=== PATIENT | female | born 1945 | race Hispanic/Latino ===

== ENCOUNTER 2018-11-06 22:18 | Emergency (ER) | payer MEDICARE ==
[2018-11-06] MEDS ORDERED: ZOFRAN IV ONE (22:34)
[2018-11-06] MEDS ORDERED: NORMODYNE IV ONE (22:34)
[2018-11-06] MEDS ORDERED: TYLENOL PO ONE (22:34)
--- NOTE | 2018-11-06 22:38 | Emergency Department Report ---
HPI - General Time Seen by Provider: 11/06/18 22:21 - HPI HPI: 73-year-old female presents to the emergency department by EMS from home with complaint of chills, nausea and vomiting. The patient says that she came home from playing [employer] and suddenly she felt very cold. She turned up the thermostat and used a blanket but still was having chills. After this the sophie ent began having some nausea and vomiting. She did not receive anything in route with EMS, nor taken anything prior to arrival. She has a past medical history of hypertension, elevated cholesterol, coronary artery disease with previous ND, and a surgical history of hysterectomy, cholecystectomy and remote heart valve repair. The patient's primary care physician is a Dr. Young. No recent travel or sick contacts at home. She denies any chest pain, abdominal pain, back pain, dysuria. The patient was found to have a fever of 102F when EMS arrived. Patient also presents with very elevated blood pressure but says that she has been taking her blood pressure medications. ED Past Medical Hx - Past Medical History Hx Hypertension: Yes Hx CVA: Yes Hx Heart Attack/AMI: Yes (X2) Hx Congestive Heart Failure: Yes Hx Renal Disease: Yes (acute kidney injury, creatinine 1.5) Additional medical history: HIGH CHOLESTEROL - Surgical History Hx Coronary Stent: Yes Hx Open Heart Surgery: Yes (TRIPLE BYPASS) Additional Surgical History: HYSTERECTOMY - Social History Smoking Status: Former Smoker - Medications Home Medications: Home Medications Medication Instructions Recorded Confirmed Last Taken Type Clopidogrel [Plavix] 75 mg PO QDAY 05/03/16 05/03/16 Unknown History Lisinopril [Zestril] 20 mg PO BID 05/03/16 05/03/16 Unknown History Metoprolol Tartrate [Lopressor] 50 mg PO BID 05/03/16 05/03/16 Unknown History RX: AtorvaSTATin [Lipitor] 40 mg PO QHS 05/03/16 05/03/16 Unknown History RX: Ampicillin [Polycillin] 500 mg PO Q6H #28 capsule 05/12/16 Unknown Rx metroNIDAZOLE [Flagyl] 500 mg PO Q8HR #21 tablet 05/12/16 Unknown Rx oxyCODONE /ACETAMINOPHEN [Percocet 1 tab PO Q6HR PRN #24 tablet 05/12/16 Unknown Rx 5/325] Sulfamethoxazole/Trimethoprim 1 each PO BID #14 tablet 11/07/18 Unknown Rx [Bactrim DS TAB] ED Review of Systems ROS: Stated complaint: FEVER Other details as noted in HPI Comment: All other systems reviewed and negative Constitutional: chills, fever Eyes: denies: eye pain, vision change ENT: denies: ear pain, throat pain Respiratory: denies: cough, shortness of breath Cardiovascular: denies: chest pain, palpitations Gastrointestinal: nausea, vomiting Genitourinary: denies: dysuria, discharge Musculoskeletal: denies: back pain, arthralgia Skin: denies: rash, lesions Neurological: denies: headache, weakness Physical Exam - Physical Exam Physical Exam: GENERAL: The patient is well-developed well-nourished. HEENT: Normocephalic. Atraumatic. Patient has moist mucous membranes. EYES: Extraocular motions are intact. Pupils are equal and reactive to light bilaterally. NECK: Supple. Trachea is midline. CHEST/LUNGS: Clear to auscultation. There is no respiratory distress noted. HEART/CARDIOVASCULAR: Regular. There is mild tachycardia. There is no obvious murmur. ABDOMEN: Abdomen is soft, nontender. Patient has normal bowel sounds. There is no abdominal distention. SKIN: Skin is warm and dry. NEURO: The patient is awake, alert, and oriented. The patient is cooperative. The patient has no focal neurologic deficits. The patient has normal speech. MUSCULOSKELETAL: There is no tenderness or deformity. There is no limitation range of motion. There is no evidence of acute injury. ED Medical Decision Making - Lab Data Result diagrams: 11/06/18 23:05 11/06/18 23:04 - Radiology Data Radiology results: image reviewed interpreted by me: Chest x-ray does not show any pneumothorax, pleural effusion, pneumonia or obvious focal consolidation. Abdominal x-ray shows nonspecific nonobstructive bowel gas. - Medical Decision Making Patient presents to the emergency department after she again having chills, nausea and vomiting. She presents with a temperature of 102F. The rest of vital signs are stable. A chest x-ray was done that does not show any pneumo chacorta, pleural effusions, pneumothorax, focal consolidation, or any other acute process. Abdominal x-ray also shows only nonspecific nonobstructive bowel gas. The patient's labs were mostly unremarkable including no leukocytosis. There were no electrolyte abnormalities or significant glucose abnormalities. The patient does have some mild renal insufficiency but in comparing her labs to previous visits, this appears to be unchanged. Patient's urinalysis however did show a significant urinary tract infection. Patient was given some IV antibiotics, Tylenol, IV fluid resuscitation. She was given some Zofran for her complaint of nausea. She was reevaluated multiple times over multiple hours and says that she is feeling greatly improved and asking for discharge home. She will be discharged home to follow up with primary care and has been given antibiotics. She will return to the ER with any worsening of her symptoms or with any acute distress. - Differential Diagnosis UTI, sepsis, pneumonia, gastroenteritis, food poisoning Critical Care Time: No Critical care attestation.: If time is entered above; I have spent that time in minutes in the direct care of this critically ill patient, excluding procedure time. ED Disposition Clinical Impression: CKD (chronic kidney disease) Qualifiers: Chronic kidney disease stage: unspecified stage Qualified Code(s): N18.9 - Chronic kidney disease, unspecified Fever Qualifiers: Fever type: unspecified Qualified Code(s): R50.9 - Fever, unspecified UTI (urinary tract infection) Qualifiers: Urinary tract infection type: acute cystitis Hematuria presence: without hematuria Qualified Code(s): N30.00 - Acute cystitis without hematuria Disposition: TO HOME OR SELFCARE Is pt being admited?: No Condition: Stable Instructions: Urinary Tract Infection in Women (ED), Chronic Kidney Disease (ED), Fever in Adults (ED) Additional Instructions: Please follow-up with your primary care physician in the next few days. Return to the emergency Department with any worsening of your symptoms or any acute distress. Take your antibiotics as prescribed. You can take Tylenol every 4 hours, using weight-based dosing on the back of the bottle, as needed for any fever or discomfort. Prescriptions: Sulfamethoxazole/Trimethoprim [Bactrim DS TAB] 1 each PO BID #14 tablet Referrals: Primary Care Physician, Your [Other] - 2-3 Days Time of Disposition: 01:58
--- NOTE | 2018-11-06 23:13 | XRay Report ---
FINAL REPORT PROCEDURE: XR ABD SERIES W CXR 1V TECHNIQUE: Abdominal series complete, including supine and upright AP views of the abdomen and front al chest. HISTORY: Abdominal Pain COMPARISON: No prior studies are available for comparison. FINDINGS: Heart: Heart size is pronounced. Mediastinum/Vessels: Multiple sternal wires. Lungs/Pleural space: Normal. Bowel gas pattern: Nonobstructive. Masses or calcifications: There is been previous surgery in the lower pelvis. The rectum is noted.. Bony structures: No acute osseous abnormality. Other: No free intraperitoneal air. IMPRESSION: Mild cardiomegaly. The bowel gas pattern is nonobstructive. There is normal previous cholecystectomy and previous surgery in the lower pelvis..
[2018-11-06 23:23] LABS: Basophils % (Auto) 0.4 % (0.0-1.8); Eosinophils # (Auto) 0.1 K/mm3 (0.0-0.4); Eosinophils % (Auto) 1.1 % (0.0-4.3); Hematocrit 35.9 % (30.3-42.9); Hemoglobin 12.2 gm/dl (10.1-14.3); Lymphocytes # (Auto) 0.6 K/mm3 (1.2-5.4); Lymphocytes % (Auto) 6.6 % (13.4-35.0); Mean Corpuscular HGB Conc 34 % (30-34); Mean Corpuscular Volume 97 fl (79-97); Monocytes # (Auto) 0.3 K/mm3 (0.0-0.8); Platelet Count 187 K/mm3 (140-440); Red Blood Count 3.71 M/mm3 (3.65-5.03); Red Cell Distribution Width 13.7 % (13.2-15.2)
[2018-11-06 23:41] LABS: Albumin 4.6 g/dL (3.9-5); Bilirubin,Direct 0.2 mg/dL (0-0.2); Calcium 9.3 mg/dL (8.4-10.2)
[2018-11-07 00:43] LABS: Bilirubin,Urine NEG (Negative); Blood,Urine MOD (Negative); Color,Urine Yellow (Yellow); Mucus,Urine FEW /HPF; Urobilinogen,Urine < 2.0 mg/dL (<2.0); WBC,Urine > 182.0 /HPF (0.0-6.0)
[2018-11-07] MEDS ORDERED: ROCEPHIN/NS 1 GM/50 ML 1 GM/50 ML BAG IV ONE (00:57)
[2018-11-07 14:49] VITALS: BP 129/60
== END 2018-11-07 02:46 | disposition home or self-care (01) ==
LOC: ED 22:18
DX: N18.9 Chronic kidney disease, unspecified (principal); N30.00 Acute cystitis without hematuria; R50.9 Fever, unspecified; I13.0 Hypertensive heart and chronic kidney disease with heart failure and stage 1 through stage 4 chronic kidney disease, or unspecified chronic kidney disease; I50.9 Heart failure, unspecified; I25.2 Old myocardial infarction; E78.00 Pure hypercholesterolemia, unspecified; Z86.73 Personal history of transient ischemic attack (TIA), and cerebral infarction without residual deficits; Z95.5 Presence of coronary angioplasty implant and graft; Z90.710 Acquired absence of both cervix and uterus; Z87.891 Personal history of nicotine dependence; Z79.899 Other long term (current) drug therapy
CPT/HCPCS: 36415; 74022; 80048; 80076; 81001; 82140; 83690; 85025; 96365; 96375; 99285; J0696; J2405

== ENCOUNTER 2019-11-10 18:33 | Emergency (ER) | payer MEDICARE ==
--- NOTE | 2019-11-10 18:40 | Emergency Department Report ---
- General Stated complaint: CVA Time Seen by Provider: 11/10/19 18:33 Source: patient, family Mode of arrival: Stretcher Limitations: No Limitations - History of Present Illness Initial comments: This 74-year-old female that presents to the emergency room with complaints of left-sided weakness. Patient's last known well time 1750 today. Patient states that she had a stroke left her with right leg weakness. Patient states she has a history of MO, 2 stents, triple bypass, hypertension, hyperlipidemia. Patient states she is currently on Plavix but is not on anticoagulants. The patient denies chest pain. Patient denies shortness of breath. Patient denies head trauma. Patient denies headache. Patient states she is compliant with all of her medications. MD Complaint: focal weakness -: Sudden Location: LUE, L hand, LLE Severity: severe Quality: numbness Consistency: constant Improves with: none Worsens with: none Associated Symptoms: denies other symptoms. denies: chest pain, confusion, dark stools, diaphoresis, dysuria, easy bruising, fever/chills, headaches, loss of appetite, nausea/vomiting, myalgias, rash, shortness of breath, syncope - Related Data Home Medications Medication Instructions Recorded Confirmed Last Taken AtorvaSTATin [Lipitor] 40 mg PO QHS 05/03/16 05/03/16 Unknown Clopidogrel [Plavix] 75 mg PO QDAY 05/03/16 05/03/16 Unknown Metoprolol Tartrate [Lopressor] 50 mg PO BID 05/03/16 05/03/16 Unknown lisinopriL [Zestril] 20 mg PO BID 05/03/16 05/03/16 Unknown Previous Rx's Medication Instructions Recorded Last Taken Type Ampicillin 500 mg PO Q6H #28 capsule 05/12/16 Unknown Rx metroNIDAZOLE [Flagyl] 500 mg PO Q8HR #21 tablet 05/12/16 Unknown Rx oxyCODONE /ACETAMINOPHEN [Percocet 1 tab PO Q6HR PRN #24 tablet 05/12/16 Unknown Rx 5/325] Sulfamethoxazole/Trimethoprim 1 each PO BID #14 tablet 11/07/18 Unknown Rx [Bactrim DS TAB] Allergies Allergy/AdvReac Type Severity Reaction Status Date / Time No Known Allergies Allergy Verified 02/24/15 09:27 ED Review of Systems ROS: Stated complaint: CVA Other details as noted in HPI Constitutional: weakness. denies: chills, fever Eyes: denies: eye pain, eye discharge, vision change ENT: denies: ear pain, throat pain Respiratory: denies: cough, shortness of breath, wheezing Cardiovascular: denies: chest pain, palpitations Endocrine: no symptoms reported Gastrointestinal: denies: abdominal pain, nausea, diarrhea Genitourinary: denies: urgency, dysuria, discharge Musculoskeletal: denies: back pain, joint swelling, arthralgia Skin: denies: rash, lesions Neurological: weakness. denies: headache, paresthesias Psychiatric: denies: anxiety, depression Hematological/Lymphatic: denies: easy bleeding, easy bruising ED Past Medical Hx - Past Medical History Previous Medical History?: Yes Hx Hypertension: Yes Hx CVA: Yes Hx Heart Attack/AMI: Yes (X2) Hx Congestive Heart Failure: Yes Hx Renal Disease: Yes (acute kidney injury, creatinine 1.5) Additional medical history: HIGH CHOLESTEROL - Surgical History Past Surgical History?: Yes Hx Coronary Stent: Yes Hx Open Heart Surgery: Yes (TRIPLE BYPASS) Additional Surgical History: HYSTERECTOMY - Family History Family history: no significant - Social History Smoking Status: Former Smoker Substance Use Type: None - Medications Home Medications: Home Medications Medication Instructions Recorded Confirmed Last Taken Type AtorvaSTATin [Lipitor] 40 mg PO QHS 05/03/16 05/03/16 Unknown History Clopidogrel [Plavix] 75 mg PO QDAY 05/03/16 05/03/16 Unknown History Metoprolol Tartrate [Lopressor] 50 mg PO BID 05/03/16 05/03/16 Unknown History lisinopriL [Zestril] 20 mg PO BID 05/03/16 05/03/16 Unknown History Ampicillin 500 mg PO Q6H #28 capsule 05/12/16 Unknown Rx metroNIDAZOLE [Flagyl] 500 mg PO Q8HR #21 tablet 05/12/16 Unknown Rx oxyCODONE /ACETAMINOPHEN [Percocet 1 tab PO Q6HR PRN #24 tablet 05/12/16 Unknown Rx 5/325] Sulfamethoxazole/Trimethoprim 1 each PO BID #14 tablet 11/07/18 Unknown Rx [Bactrim DS TAB] ED Physical Exam - General Limitations: No Limitations General appearance: alert, in no apparent distress - Head Head exam: Present: atraumatic, normocephalic - Eye Eye exam: Present: normal appearance - ENT ENT exam: Present: mucous membranes moist - Neck Neck exam: Present: normal inspection - Respiratory Respiratory exam: Present: normal lung sounds bilaterally. Absent: respiratory distress, wheezes, rales - Cardiovascular Cardiovascular Exam: Present: regular rate, normal rhythm. Absent: systolic murmur, diastolic murmur, rubs, gallop - GI/Abdominal GI/Abdominal exam: Present: soft, normal bowel sounds. Absent: distended, tende rness, guarding - Rectal Rectal exam: Present: deferred - Extremities Exam Extremities exam: Present: normal inspection - Back Exam Back exam: Present: normal inspection - Neurological Exam Neurological exam: Present: alert, oriented X3 - Psychiatric Psychiatric exam: Present: normal affect, normal mood - Skin Skin exam: Present: warm, dry, intact, normal color. Absent: rash - Assessment Assessment Interval: Baseline - Level of Consciousness 1a. Level of Consciousness: alert/keenly responsive - LOC Questions 1b. LOC Questions: answers 1 question correctly - LOC Command 1c. LOC Commands: performs tasks correctly - Best Gaze 2. Best Gaze: forced deviation - Visual 3. Visual: complete hemianopia - Facial Palsy 4. Facial Palsy: partial paralysis - Motor Arm 5a. Motor Arm Left: no movement 5b. Motor Arm Right: no drift - Motor Leg 6a. Motor Leg Left: no movement 6b. Motor Leg Right: drift - Limb Ataxia 7. Limb Ataxia: absent - Sensory 8. Sensory: severe/total sensory loss - Best Language 9. Best Language: mild/moderate aphasia - Dysarthria 10. Dysarthria: mild/moderate dysarthria - Extinction and Inattention 11. Extinction/Inattention: profound inattention - Scoring Total Score: 22 Stroke Severity: Severe Stroke ED Course Vital Signs 11/10/19 11/10/19 11/10/19 18:52 19:00 19:01 Temperature 98.8 F Pulse Rate 128 H 129 H 104 H Respiratory 31 H 29 H 16 Rate Blood Pressure Blood Pressure 197/146 [Right] O2 Sat by Pulse 96 100 Oximetry 11/10/19 11/10/19 11/10/19 19:15 19:16 19:52 Temperature Pulse Rate 125 H 125 H 128 H Respiratory 22 Rate Blood Pressure 196/123 196/123 197/146 Blood Pressure [Right] O2 Sat by Pulse 100 99 Oximetry 11/10/19 11/10/1920 20:00 20:16 20:17 Temperature Pulse Rate 129 H 128 H 127 H Respiratory 28 H 27 H Rate Blood Pressure 197/146 196/123 144/82 Blood Pressure [Right] O2 Sat by Pulse 96 93 Oximetry 11/10/19 11/10/19 11/10/19 20:50 21:00 21:16 Temperature Pulse Rate 97 H 93 H 127 H Respiratory 19 21 20 Rate Blood Pressure 148/88 129/68 148/88 Blood Pressure [Right] O2 Sat by Pulse 95 94 95 Oximetry 11/10/19 11/10/19 11/10/19 21:30 21:46 22:00 Temperature Pulse Rate 128 H 130 H 131 H Respiratory 12 20 22 Rate Blood Pressure 135/78 149/94 152/77 Blood Pressure [Right] O2 Sat by Pulse 97 97 95 Oximetry - Reevaluation(s) Reevaluation #1: Patient's blood pressure still high. Patient status post vital patient will be placed on nicardipine drip. 11/10/19 19:13 Reevaluation #2: Patient blood pressure slightly better. Patient on nicardipine drip. Patient is very agitated. Patient unable to get a CTA because nurses were unable to get IV access. A central line will be placed in the right groin. Patient will be given Geodon. 11/10/19 19:48 Reevaluation #3: Central line placed. Patient's blood pressure better. Patient received TPA. Patient going back to CT for a CT of head and neck. 11/10/19 20:22 Reevaluation #4: I discussed plan of care with family and patient. The patient and family agree with Plan of care. Patient will be transferred via ground EMS to [facility] stroke team. I discussed all results with family and patient. We are not able to fly the patient via helicopter due to bad weather. 11/10/19 21:40 - Consultations Consultation #1: Discussed case with neurologist. Neurologist wants to give TPA once the blood pressures come down. 11/10/19 19:13 Neurologist read the CTA and the CTA head shows an M1 occlusion and is aren't counseled to stroke team [facility]. 11/10/19 21:04 Consultation #2: [facility] stroke team consult 11/10/19 21:05 Discussed case with neurology, stroke team at [facility]. Unable to fly the patient via helicopter due to bad weather. 11/10/19 21:07 She has been accepted to be transferred to [facility] stroke by dr Seaman. 11/10/19 21:30 - Central Line Placement Right Femoral Consent Obtained: emergent situation Time Out Performed: Yes Patient Placed on Monitor/Pulse Ox: Yes MD Prep: mask, gown, gloves Central Line Prep: Povidone-Iodine 1%, Chlorhexidine scrub, sterile drapes applied Local Anesthesia Used: Lidocaine 1% Ultrasound Used for Placement: Yes Central Line Lumen Inserted: triple Bloods Obtained for Lab: No Central Line Position: good blood return, all ports aspirated, flus, sutured in place with 2-0 Dressing Applied: Tegaderm Patient Tolerated Procedure: well, no complications Complications: none ED Medical Decision Making - Lab Data Result diagrams: 11/10/19 18:42 11/10/19 18:42 - EKG Data -: EKG Interpreted by Me EKG shows normal: sinus rhythm, axis, intervals, QRS complexes, ST-T waves Rate: normal - Radiology Data Radiology results: report reviewed, image reviewed CT head/brain wo con INDICATION / CLINICAL INFORMATION: 74 years Female; neuro deficits <6hrs or sx present upon awakening. TECHNIQUE: Routine CT head without contrast. All CT scans at this location are performed using CT dose reduction for ALARA by means of automated exposure control. COMPARISON: None. FINDINGS: BRAIN / INTRACRANIAL CONTENTS: Hyperdense M1 segments seen in the right MCA territory, when compared with the remainder of the visualized intracranial arteries, worrisome for thrombus. There may be early, subtle changes in the wu matter of the right MCA territory, particularly in the inferior frontal gyral region and perhaps in the insular cortex. Old corpus striatal infarcts seen on the right. Lacunar infarcts seen in the left gangliocapsular region. Old, branch PICA infarcts seen bilaterally. Otherwise, no acute hemorrhage, mass effect, midline shift, hydrocephalus, or ac [place], large territorial infarct. Mild to moderate cerebral and cerebellar atrophy. There are extensive areas of decreased attenuation in the white matter of the cerebral hemispheres, as well as the gangliocapsular regions. These are nonspecific findings and may be related to microangiopathy (hypertension, diabetes, atherosclerosis), given the patient's age. It might be difficult to evaluate for small areas of ischemia without diffusion imaging by MRI. CRANIOCERVICAL JUNCTION: No significant abnormality. ORBITS: No significant abnormality of visualized orbits. SINUSES / MASTOIDS: Mucosal thickening seen in the ethmoids. ADDITIONAL FINDINGS: Atherosclerotic disease is seen in the anterior and posterior circulation. IMPRESSION: 1. Findings concerning for thrombus in early ischemic changes in the right MCA territory as described above. CT angio head INDICATION / CLINICAL INFORMATION: 74 years Female; stroke. TECHNIQUE: Thin cut axial images obtained through the head during IV bolus contrast administration. Sagittal, coronal, and 3 plane MIP reconstructions performed by the t echnologist. NASCET type criteria used evaluate stenoses. Automated exposure control utilized for ra diation reduction purposes. COMPARISON: CT head - 11/10/2019 at 6:36 PM FINDINGS: Since prior CT, ischemic changes in the right MCA territory are much better visualized. INTERNAL CAROTID ARTERIES: No significant narrowing appreciated. Mild atherosclerotic disease seen in the internal carotid arteries bilaterally. VERTEBROBASILAR SYSTEM: No significant narrowing appreciated. DISTAL BRANCHES: Distal branches of the anterior posterior cerebral arteries are fairly symmetric in appearance and number. As noted on recent CT, there is thrombus in the M1 segment on the right extending into the MCA trifurcation region. A small component of the thrombus projects into the proximal posterior communicating artery on the right, although the right posterior cerebral artery does not appear to be affected at this time. The distal right MCA vessels are much less well visualized, when compared with the left. ANEURYSM: None identified. ADDITIONAL FINDINGS: Remainder of the surrounding soft tissues are grossly normal. IMPRESSION: 1. Thrombus seen in the right MCA territory as described above. Findings correspond with findings on recent CT from earlier today. 2. Progression of ischemic changes in the right MCA territory noted. No definitive signs of hemorrhagic transformation at this time. CT angio neck INDICATION / CLINICAL INFORMATION: 74 years Female; stroke. TECHNIQUE: Thin cut axial images obtained through the head during IV bolus contrast administration. Sagittal, coronal, and 3 plane MIP reconstructions performed by the technologist. NASCET type criteria used evaluate stenoses. All CT scans at this location are performed using CT dose reduction for ALARA by means of automated exposure control. Motion artifact. COMPARISON: None available. FINDINGS: ARCH: Normal aortic arch branching suggested. Mild atherosclerotic disease seen in the arch and its proximal branches. There may be an area of significant narrowing in the innominate artery on the right, approximately 2 cm distal to its origin extending to the bifurcation into the right common and right subclavian arteries. Some of this finding could be related to motion artifact. CAROTID ARTERIES: The visualized common and internal carotid arteries are widely patent. Mild atherosclerotic disease seen in the carotid bifurcation regions. VERTEBRAL ARTERIES: Left dominant vertebral system seen. No significant stenosis appreciated. May be mild narrowing at the origin of the left vertebral artery. However, this finding may be related to motion artifact. ADDITIONAL FINDINGS: Median sternotomy wires noted. Disc space narrowing seen at C5-6 and C6-7. IMPRESSION: 1. There may be a hemodynamically significant stenosis in the mid to distal innominate artery, as described above, although motion artifact might be consideration. 2. Otherwise, no signs of hemodynamically significant narrowing appreciated. - Medical Decision Making Patient is a 74-year-old female that presents with left-sided weakness. pt had a history of a stroke leaving her with right leg weakness in the past. Code stroke initiated immediately upon arrival. Neurology consultation immediately upon arrival. Patient was brought in by EMS. Neurologist recommended TPA. The delay in giving TPA due to the patient's mother hypertension. Patient was placed on a nicardipine drip given through the left EJ. And once the blood pressure reached a more tolerable level, the patient was given TPA bolus and a TPA drip. Patient also had delay and obtaining a CTA due to the patient not having adequate IV access, patient had a left EJ was placed by EMS put based on this hospital protocol and EJ cannot be used for CTA.. Patient required a central line to be in place in her right femoral vein. A delay in obtaining a central line due to the patient being agitated. Patient was given Geodon and Ativan and patient calm down. Patient tolerated central venous line. Central venous line will was placed without difficulty. See procedure note. After central venous line was obtained, the patient was sent for a CTA. CTA results were received and neuro stroke team at [facility] was consulted. Patient transfer emergently to [facility] stroke for a endovascular procedure. CTA results shows a MCA occlusion. Labs were done in the ER as a part of the code stroke. Labs are significant for renal failure and elevated troponin. The patient had to receive IV dye because the benefit outweighed the risk since the patient emergently required CTA evaluation. - Differential Diagnosis cva. weakness. enceph Critical Care Time: Yes Critical care time in (mins) excluding proc time.: 80 Critical care attestation.: If time is entered above; I have spent that time in minutes in the direct care of this critically ill patient, excluding procedure time. Critical Care Time: 80 minutes ED Disposition Clinical Impression: Hypertension, malignant, Elevated troponin I level, Left-sided weakness, Agitation CVA (cerebral vascular accident) Qualifiers: CVA mechanism: occlusion Precerebral and cerebral artery: middle cerebral artery Laterality of affected vessel: right Qualified Code(s): I63.511 - Cerebral infarction due to unspecified occlusion or stenosis of right middle cerebral artery Renal failure Qualifiers: Renal failure chronicity: acute Acute renal failure type: unspecified Qualified Code(s): N17.9 - Acute kidney failure, unspecified HTN (hypertension) Qualifiers: Hypertension type: unspecified Qualified Code(s): I10 - Essential (primary) hypertension Disposition: DC/TX-70 ANOTHER TYPE HLTHCARE Is pt being admited?: No Does the pt Need Aspirin: No Condition: Critical Time of Disposition: 21:57
[2019-11-10 18:56] LABS: Basophils # (Auto) 0.1 K/mm3 (0.0-0.1); Basophils % (Auto) 1.2 % (0.0-1.8); Eosinophils # (Auto) 0.2 K/mm3 (0.0-0.4); Hematocrit 32.7 % (30.3-42.9); Hemoglobin 10.8 gm/dl (10.1-14.3); Lymphocytes # (Auto) 1.2 K/mm3 (1.2-5.4); Lymphocytes % (Auto) 25.1 % (13.4-35.0); Mean Corpuscular HGB Conc 33 % (30-34); Mean Corpuscular Volume 89 fl (79-97); Monocytes # (Auto) 0.5 K/mm3 (0.0-0.8); Monocytes % (Auto) 9.2 % (0.0-7.3); Platelet Count 215 K/mm3 (140-440); Red Blood Count 3.68 M/mm3 (3.65-5.03); Red Cell Distribution Width 16.3 % (13.2-15.2)
--- NOTE | 2019-11-10 19:05 | Cat Scan Report ---
CT head/brain wo con INDICATION / CLINICAL INFORMATION: 74 years Female; neuro deficits <6hrs or sx present upon awakening. TECHNIQUE: Routine CT head without contrast. All CT scans at this location are performed using CT dos e reduction for ALARA by means of automated exposure control. COMPARISON: None. FINDINGS: BRAIN / INTRACRANIAL CONTENTS: Hyperdense M1 segments seen in the right MCA territory, when compared with the remainder of the visualized intracranial arteries, worrisome for thrombus. There may be jose armando y, subtle changes in the wu matter of the right MCA territory, particularly in the inferior frontal gyral region and perhaps in the insular cortex. Old corpus striatal infarcts seen on the right. Lacunar infarcts seen in the left gangliocapsular reg ion. Old, branch PICA infarcts seen bilaterally. Otherwise, no acute hemorrhage, mass effect, midline shift, hydrocephalus, or acute, large territori al infarct. Mild to moderate cerebral and cerebellar atrophy. There are extensive areas of decreased attenuation in the white matter of the cerebral hemispheres, a s well as the gangliocapsular regions. These are nonspecific findings and may be related to microangi opathy (hypertension, diabetes, atherosclerosis), given the patient's age. It might be difficult to e valuate for small areas of ischemia without diffusion imaging by MRI. CRANIOCERVICAL JUNCTION: No significant abnormality. ORBITS: No significant abnormality of visualized orbits. SINUSES / MASTOIDS: Mucosal thickening seen in the ethmoids. ADDITIONAL FINDINGS: Atherosclerotic disease is seen in the anterior and posterior circulation. IMPRESSION: 1. Findings concerning for thrombus in early ischemic changes in the right MCA territory as described above. This exam was performed as part of a code stroke protocol. The exam was completed on 11/10/2019 5:49 PM . The exam was reviewed at 5:[address] Sotelo was notified at 5:58 PM. Signer Name: Jarod Gallo MD, III Signed: 11/10/2019 7:01 PM Workstation Name: [id number]
[2019-11-10 19:07] LABS: Calcium 9.2 mg/dL (8.4-10.2); INR 0.97 (0.87-1.13)
[2019-11-10 19:23] LABS: Chol/HDL Ratio 2.61 %
--- NOTE | 2019-11-10 19:38 | Emergency Department Report ---
ED Neuro Deficit HPI - General Chief Complaint: Weakness Stated Complaint: CVA Time Seen by Provider: 11/10/19 18:33 Source: patient, EMS Mode of arrival: Ambulatory Limitations: No Limitations - History of Present Illness Initial Comments: [facility] Date of Service: 11/10/2019 18:40:36 Impression: Right Hemispheric Infarct MCA Distribution Infarct Comments: Concern for R MCA occlusion based on CT head. Patient was uncooperative and unable to get BP readings or IV access for CTA. Central line was placed while getting BP down and tpa prepared. Tpa was eventually able to be given after sedation. Will follow up CTA. Metrics: Last Known Well: 11/10/2019 17:50:00 [facility] Notification Time: 11/10/2019 18:40:36 Arrival Time: 11/10/2019 18:33:00 Stamp Time: 11/10/2019 18:40:36 Time First Login Attempt: 11/10/2019 18:40:36 Video Start Time: 11/10/2019 18:40:36 Symptoms: left sided weakness NIHSS Start Assessment Time: 11/10/2019 18:49:30 tPA Verbal Order Time: 11/10/2019 19:00:32 Patient is a candidate for tPA. tPA CPOE Order Time: 11/10/2019 19:07:53 Needle Time: 11/10/2019 20:16:00 Weight Noted by Staff: 82.8 kg Video End Time: 11/10/2019 20:16:39 tPA Delay Notes: BP control, delay in getting nicardipine from the pharmacy, patient having difficulty staying still and BP monitor was not able to read. Manual had to be used. She was given Geodon as she was agitated and unable to stay still for IV access or to get blood pressure readings. Still uncooperative after Geodon so then ativan 2mg was given. CT head was reviewed and results were: R MCA hyperdensity Presentation suggestive of Large Vessel Occlusive Disease, Neurointerventional specialists to be consulted. Advanced imaging CTA head and neck obtained. ED Physician notified of diagnostic impression and management plan on 11/10/2019 19:08:14 Verbal Consent to tPA: I have explained to the Patient the nature of the patients condition, the use of tPA fibrinolytic agent, and the benefits to be reasonably expected compared with alternative approaches. I have discussed the likelihood of major risks or complications of this procedure including (if applicable) but not limited to loss of limb function, brain damage, paralysis, hemorrhage, infection, complications from transfusion of blood components, drug reactions, blood clots and loss of life. I have also indicated that with any procedure there is always the possibility of an unexpected complication. All questions were answered and Patient express understanding of the treatment plan and consent to the treatment. Our recommendations are outlined below. Recommendations: IV tPA recommended. tPA bolus given Without Complication. IV tPA Total Dose 74.6 mg IV tPA Bolus Dose 7.5 mg IV tPA Infusion Dose - 67.1 mg Routine post tPA monitoring including neuro checks and blood pressure control during/after treatment Monitor blood pressure Check blood pressure and NIHSS every 15 min for 2 h, then every 30 min for 6 h, and finally every hour for 16 h. Manage Blood Pressure per post tPA protocol. Admission to ICU CT brain 24 hours post tPA NPO until swallowing screen performed and passed No antiplatelet agents or anticoagulants (including heparin for DVT prophylaxis) in first 24 hours No Penaloza catheter, nasogastric tube, arterial catheter or central venous catheter for 24 hr, unless absolutely necessary Telemetry Bedside swallow evaluation HOB less than 30 degrees Euglycemia Avoid hyperthermia, PRN acetaminophen DVT prophylaxis Inpatient Neurology Consultation Stroke evaluation as per inpatient neurology recommendations Additional Recommendations: MRA Head Without Contrast Start Atorvastatin Lipid Panel Check Hgb A1c Dysphagia Screen DVT Prophylaxis Hyperglycemia Treatment as per Primary Team PT/ OT / Speech Therapy Consultation Neurology to Be Consulted for Inpatient Routine Consultation Echocardiogram, TTE Discussed with ED physician History of Present Illness: Patient is a 74 years old Female. Patient was brought by EMS for symptoms of left sided weakness 74 yo F with history of stroke who is presenting with left sided weakness. Patient states that her daughter thought she was having a stroke because she was having left sided weakness at 17:50. Per her daughter she had witnessed onset of left sided weakness. CT head was reviewed. Examination: BP(144/82), Blood Glucose(114) 1A: Level of Consciousness - Alert; keenly responsive + 0 1B: Ask Month and Age - 1 Question Right + 1 1C: Blink Eyes & Squeeze Hands - Performs Both Tasks + 0 2: Test Horizontal Extraocular Movements - Forced Gaze Palsy: Cannot Be Overcome + 2 3: Test Visual Ramirez - Complete Hemianopia + 2 4: Test Facial Palsy (Use Grimace if Obtunded) - Partial paralysis (lower face) + 2 5A: Test Left Arm Motor Drift - No Movement + 4 5B: Test Right Arm Motor Drift - No Drift for 10 Seconds + 0 6A: Test Left Leg Motor Drift - No Movement + 4 6B: Test Right Leg Motor Drift - Drift, but doesn't hit bed + 1 7: Test Limb Ataxia (FNF/Heel-Pro) - No Ataxia + 0 8: Test Sensation - Complete Loss: Cannot Sense Being Touched At All + 2 9: Test Language/Aphasia - Mild-Moderate Aphasia: Some Obvious Changes, Without Significant Limitation + 1 10: Test Dysarthria - Mild-Moderate Dysarthria: Slurring but can be understood + 1 11: Test Extinction/Inattention - Profound kateryna-inattention (ex: does not recognize own hand) + 2 NIHSS Score: 22 Patient was informed the Neurology Consult would happen via TeleHealth consult by way of interactive audio and video telecommunications and consented to receiving care in this manner. Due to the immediate potential for life-threatening deterioration due to underlying acute neurologic illness, I spent 35 minutes providing critical care. This time includes time for face to face visit via telemedicine, review of medical records, imaging studies and discussion of findings with providers, the patient and/or family. Dr Zandra Novak [facility] Case [id number] Severity: severe - Related Data Home Medications: Home Medications Medication Instructions Recorded Confirmed Last Taken AtorvaSTATin [Lipitor] 40 mg PO QHS 05/03/16 05/03/16 Unknown Clopidogrel [Plavix] 75 mg PO QDAY 05/03/16 05/03/16 Unknown Metoprolol Tartrate [Lopressor] 50 mg PO BID 05/03/16 05/03/16 Unknown lisinopriL [Zestril] 20 mg PO BID 05/03/16 05/03/16 Unknown Previous Rx's Medication Instructions Recorded Last Taken Type Ampicillin 500 mg PO Q6H #28 capsule 05/12/16 Unknown Rx metroNIDAZOLE [Flagyl] 500 mg PO Q8HR #21 tablet 05/12/16 Unknown Rx oxyCODONE /ACETAMINOPHEN [Percocet 1 tab PO Q6HR PRN #24 tablet 05/12/16 Unknown Rx 5/325] Sulfamethoxazole/Trimethoprim 1 each PO BID #14 tablet 11/07/18 Unknown Rx [Bactrim DS TAB] Allergies/Adverse Reactions: Allergies Allergy/AdvReac Type Severity Reaction Status Date / Time No Known Allergies Allergy Verified 02/24/15 09:27 ED Review of Systems ROS: Stated complaint: CVA Other details as noted in HPI Constitutional: weakness. denies: chills, fever Eyes: denies: eye pain, eye discharge, vision change ENT: denies: ear pain, throat pain Respiratory: denies: cough, shortness of breath, wheezing Cardiovascular: denies: chest pain, palpitations Endocrine: no symptoms reported Gastrointestinal: denies: abdominal pain, nausea, diarrhea Genitourinary: denies: urgency, dysuria, discharge Musculoskeletal: denies: back pain, joint swelling, arthralgia Skin: denies: rash, lesions Neurological: weakness. denies: headache, paresthesias Psychiatric: denies: anxiety, depression Hematological/Lymphatic: denies: easy bleeding, easy bruising ED Past Medical Hx - Past Medical History Previous Medical History?: Yes Hx Hypertension: Yes Hx CVA: Yes Hx Heart Attack/AMI: Yes (X2) Hx Congestive Heart Failure: Yes Hx Renal Disease: Yes (acute kidney injury, creatinine 1.5) Additional medical history: HIGH CHOLESTEROL - Surgical History Past Surgical History?: Yes Hx Coronary Stent: Yes Hx Open Heart Surgery: Yes (TRIPLE BYPASS) Additional Surgical History: HYSTERECTOMY - Social History Smoking Status: Former Smoker Substance Use Type: None - Medications Home Medications: Home Medications Medication Instructions Recorded Confirmed Last Taken Type AtorvaSTATin [Lipitor] 40 mg PO QHS 05/03/16 05/03/16 Unknown History Clopidogrel [Plavix] 75 mg PO QDAY 05/03/16 05/03/16 Unknown History Metoprolol Tartrate [Lopressor] 50 mg PO BID 05/03/16 05/03/16 Unknown History lisinopriL [Zestril] 20 mg PO BID 05/03/16 05/03/16 Unknown History Ampicillin 500 mg PO Q6H #28 capsule 05/12/16 Unknown Rx metroNIDAZOLE [Flagyl] 500 mg PO Q8HR #21 tablet 05/12/16 Unknown Rx oxyCODONE /ACETAMINOPHEN [Percocet 1 tab PO Q6HR PRN #24 tablet 05/12/16 Unknown Rx 5/325] Sulfamethoxazole/Trimethoprim 1 each PO BID #14 tablet 11/07/18 Unknown Rx [Bactrim DS TAB] ED Neuro Physical Exam - General Limitations: No Limitations Suspected Stroke: Yes - NIHSS Assessment Interval: Baseline 1a. Level of Consciousness: alert/keenly responsive 1b. LOC Questions: answers 1 question correctly 1c. LOC Commands: performs tasks correctly 2. Best Gaze: forced deviation 3. Visual: complete hemianopia 4. Facial Palsy: partial paralysis 5b. Motor Arm Right: no drift 5a. Motor Arm Left: no movement 6a. Motor Leg Left: no movement 6b. Motor Leg Right: drift 7. Limb Ataxia: absent 8. Sensory: severe/total sensory loss 9. Best Language: mild/moderate aphasia 10. Dysarthria: mild/moderate dysarthria 11. Extinction/Inattention: complete neglect Total Score: 22 Stroke Severity: Severe Stroke ED Course Vital Signs 11/10/19 19:01 Temperature 98.8 F Pulse Rate 104 H Respiratory 16 Rate Blood Pressure 197/146 [Right] O2 Sat by Pulse 100 Oximetry - Lab Data Result diagrams: 11/10/19 18:42 11/10/19 18:42 Lab Results 11/10/19 11/10/19 11/10/19 Range/Units 18:42 18:42 18:42 WBC 4.9 (4.5-11.0) K/mm3 RBC 3.68 (3.65-5.03) M/mm3 Hgb 10.8 (10.1-14.3) gm/dl Hct 32.7 (30.3-42.9) % MCV 89 (79-97) fl MCH 29 (28-32) pg MCHC 33 (30-34) % RDW 16.3 H (13.2-15.2) % Plt Count 215 (140-440) K/mm3 Lymph % (Auto) 25.1 (13.4-35.0) % [place] % (Auto) 9.2 H (0.0-7.3) % Eos % (Auto) 4.0 (0.0-4.3) % Baso % (Auto) 1.2 (0.0-1.8) % Lymph # 1.2 (1.2-5.4) K/mm3 [place] # 0.5 (0.0-0.8) K/mm3 Eos # 0.2 (0.0-0.4) K/mm3 Baso # 0.1 (0.0-0.1) K/mm3 Seg Neutrophils % 60.5 (40.0-70.0) % Seg Neutrophils # 3.0 (1.8-7.7) K/mm3 PT 13.0 (12.2-14.9) Sec. INR 0.97 (0.87-1.13) APTT 27.0 (24.2-36.6) Sec. Thrombin Time (15.1-19.6) Sec. Sodium 139 (137-145) mmol/L Potassium 4.4 (3.6-5.0) mmol/L Chloride 103.0 (98-107) mmol/L Carbon Dioxide 20 L (22-30) mmol/L Anion Gap 20 mmol/L BUN 17 (7-17) mg/dL Creatinine 1.6 H (0.7-1.2) mg/dL Estimated GFR 32 ml/min BUN/Creatinine Ratio 11 % Glucose 114 H (65-100) mg/dL Calcium 9.2 (8.4-10.2) mg/dL Troponin T 0.083 H (0.00-0.029) ng/mL Triglycerides 90 (2-149) mg/dL Cholesterol 183 (50-199) mg/dL LDL Cholesterol Direct 106 (50-130) mg/dL HDL Cholesterol 70 H (40-59) mg/dL Cholesterol/HDL Ratio 2.61 % // Range/Units 18:42 WBC (4.5-11.0) K/mm3 RBC (3.65-5.03) M/mm3 Hgb (10.1-14.3) gm/dl Hct (30.3-42.9) % MCV (79-97) fl MCH (28-32) pg MCHC (30-34) % RDW (13.2-15.2) % Plt Count (140-440) K/mm3 Lymph % (Auto) (13.4-35.0) % [place] % (Auto) (0.0-7.3) % Eos % (Auto) (0.0-4.3) % Baso % (Auto) (0.0-1.8) % Lymph # (1.2-5.4) K/mm3 [place] # (0.0-0.8) K/mm3 Eos # (0.0-0.4) K/mm3 Baso # (0.0-0.1) K/mm3 Seg Neutrophils % (40.0-70.0) % Seg Neutrophils # (1.8-7.7) K/mm3 PT (12.2-14.9) Sec. INR (0.87-1.13) APTT (24.2-36.6) Sec. Thrombin Time 15.4 (15.1-19.6) Sec. Sodium (137-145) mmol/L Potassium (3.6-5.0) mmol/L Chloride (98-107) mmol/L Carbon Dioxide (22-30) mmol/L Anion Gap mmol/L BUN (7-17) mg/dL Creatinine (0.7-1.2) mg/dL Estimated GFR ml/min BUN/Creatinine Ratio % Glucose (65-100) mg/dL Calcium (8.4-10.2) mg/dL Troponin T (0.00-0.029) ng/mL Triglycerides (2-149) mg/dL Cholesterol (50-199) mg/dL LDL Cholesterol Direct (50-130) mg/dL HDL Cholesterol (40-59) mg/dL Cholesterol/HDL Ratio % Critical care attestation.: If time is entered above; I have spent that time in minutes in the direct care of this critically ill patient, excluding procedure time. ED Disposition Clinical Impression: CVA (cerebral vascular accident), Hypertension, malignant Disposition: OP ADMIT IP TO THIS HOSP Is pt being admited?: Yes Condition: Stable Instructions: Hypertension (ED) Referrals: PRIMARY CARE, [Primary Care Provider] - 3-5 Days
[2019-11-10] MEDS: LORazepam 2 MG/ML VIAL IV ONE ×2 (19:45→20:00)
[2019-11-10] MEDS ORDERED: WATER FOR INJ Sterile (PF) 10 ML ONE (19:46)
[2019-11-10] MEDS ORDERED: GLUCAGON (HUMAN RECOMBINANT) 1 MG/ML INJ ONE (19:46)
[2019-11-10] MEDS ORDERED: ZIPRASIDONE MESYLATE 20 MG VIAL IM ONE (19:47)
[2019-11-10] MEDS: niCARdipine 50 MG in SODIUM CHLORIDE 0.9% 250ML 230 ML IV SCH (19:50)
[2019-11-10] MEDS: ZIPRASIDONE MESYLATE 20 MG VIAL IM ONE (19:55)
[2019-11-10] MEDS: LIDOCAINE (2%) 20 MG/1 ML VIAL 20 ML MDV INFILTRATI ONE (20:00)
[2019-11-10] MEDS ORDERED: LIDOCAINE (2%) 20 MG/1 ML VIAL 20 ML MDV INFILTRATI ONE (20:08)
[2019-11-10] MEDS: ALTEPLASE 100 MG INJ KIT IV ONE ×2 (20:16→20:17)
[2019-11-10] MEDS: SODIUM CHLORIDE 0.9% 50 ML IVPB IV ONE (21:16)
--- NOTE | 2019-11-10 21:36 | Cat Scan Report ---
CT angio head INDICATION / CLINICAL INFORMATION: 74 years Female; stroke. TECHNIQUE: Thin cut axial images obtained through the head during IV bolus contrast administration. S agittal, coronal, and 3 plane MIP reconstructions performed by the technologist. NASCET type criteria used evaluate stenoses. Automated exposure control utilized for radiation reduction purposes. COMPARISON: CT head - 11/10/2019 at 6:36 PM FINDINGS: Since prior CT, ischemic changes in the right MCA territory are much better visualized. INTERNAL CAROTID ARTERIES: No significant narrowing appreciated. Mild atherosclerotic disease seen in the internal carotid arteries bilaterally. VERTEBROBASILAR SYSTEM: No significant narrowing appreciated. DISTAL BRANCHES: Distal branches of the anterior posterior cerebral arteries are fairly symmetric in appearance and number. As noted on recent CT, there is thrombus in the M1 segment on the right extending into the MCA trifur cation region. A small component of the thrombus projects into the proximal posterior communicating a rtery on the right, although the right posterior cerebral artery does not appear to be affected at th is time. The distal right MCA vessels are much less well visualized, when compared with the left. ANEURYSM: None identified. ADDITIONAL FINDINGS: Remainder of the surrounding soft tissues are grossly normal. IMPRESSION: 1. Thrombus seen in the right MCA territory as described above. Findings correspond with findings on recent CT from earlier today. 2. Progression of ischemic changes in the right MCA territory noted. No definitive signs of hemorrhag ic transformation at this time. Signer Name: Jarod Gallo MD, III Signed: 11/10/2019 9:31 PM Workstation Name: [id number]
--- NOTE | 2019-11-10 21:46 | Cat Scan Report ---
CT angio neck INDICATION / CLINICAL INFORMATION: 74 years Female; stroke. TECHNIQUE: Thin cut axial images obtained through the head during IV bolus contrast administration. S agittal, coronal, and 3 plane MIP reconstructions performed by the technologist. NASCET type criteria used evaluate stenoses. All CT scans at this location are performed using CT dose reduction for ALAR A by means of automated exposure control. Motion artifact. COMPARISON: None available. FINDINGS: ARCH: Normal aortic arch branching suggested. Mild atherosclerotic disease seen in the arch and its p roximal branches. There may be an area of significant narrowing in the innominate artery on the right , approximately 2 cm distal to its origin extending to the bifurcation into the right common and righ t subclavian arteries. Some of this finding could be related to motion artifact. CAROTID ARTERIES: The visualized common and internal carotid arteries are widely patent. Mild atheros clerotic disease seen in the carotid bifurcation regions. VERTEBRAL ARTERIES: Left dominant vertebral system seen. No significant stenosis appreciated. May be mild narrowing at the origin of the left vertebral artery. However, this finding may be related to mo tion artifact. ADDITIONAL FINDINGS: Median sternotomy wires noted. Disc space narrowing seen at C5-6 and C6-7. IMPRESSION: 1. There may be a hemodynamically significant stenosis in the mid to distal innominate artery, as myriam cribed above, although motion artifact might be consideration. 2. Otherwise, no signs of hemodynamically significant narrowing appreciated. Signer Name: Jarod Gallo MD, III Signed: 11/10/2019 9:42 PM Workstation Name: [id number]
[2019-11-10] MEDS ORDERED: ONDANSETRON 4 MG/2 ML INJ ONE (21:53)
[2019-11-10] MEDS: ONDANSETRON 4 MG/2 ML INJ IV ONE (22:00)
[2019-11-10 22:08] VITALS: BP 152/77
== END 2019-11-10 22:40 | disposition other institution (70) ==
LOC: ED 18:33
DX: I11.0 Hypertensive heart disease with heart failure (principal); R45.1 Restlessness and agitation; I63.9 Cerebral infarction, unspecified; N19 Unspecified kidney failure; I25.2 Old myocardial infarction; I50.9 Heart failure, unspecified; Z90.710 Acquired absence of both cervix and uterus; Z98.890 Other specified postprocedural states; Z87.891 Personal history of nicotine dependence; Z79.899 Other long term (current) drug therapy
CPT/HCPCS: 36415; 37195; 70450; 70496; 70498; 80048; 80061; 82962; 84484; 85025; 85610; 85670; 85730; 93005; 93010; 96365; 96366; 96372; 96375; 99291; 99292; J2060; J2405; J2997; J3486; J7050; Q9967; J1610